=== PATIENT | male | born 1960 | race Caucasian/White ===

== ENCOUNTER → 2021-04-22 | Outpatient (CLI) | payer BC ==
--- NOTE | 2021-04-22 17:58 | CONS ---
CONSULTATION DATE OF SERVICE: 04/22/2021 This 61-year-old gentleman has been evaluated in the sleep center for possible obstructive sleep apnea-hypopnea syndrome. HISTORY OF PRESENT ILLNESS/SLEEP-WAKE EVALUATION: Patient's usual sleep schedule on working days is from 9 p.m. to 5 a.m. and on weekends from 9:30 p.m. to 5 a.m. No problems with falling asleep, although patient has a TV set in the bedroom. According to his , he snores and has witnessed episodes of stopped breathing during sleep. The patient wakes up from sleep with choking and nocturia, has symptoms of restless legs. During the day he usually does not take naps. R[place]el Sleepiness Scale is 3. PAST MEDICAL HISTORY: Positive for hypertension and hyperlipidemia. PAST SURGICAL HISTORY: Right colectomy for benign tumor. MEDICATIONS: 1. Lisinopril 10 mg once a day. 2. Loratadine 60 mg once a day. 3. Atorvastatin 40 mg once a day. SOCIAL HISTORY: Negative for smoking. Alcohol consumption: Occasional. FAMILY HISTORY: Heart problems. REVIEW OF SYSTEMS: No fevers. No double vision. No recent chest pain. No shortness of breath. No abdominal pain. No bleeding episodes. No blood in the urine. No seizure episodes. Snoring, episodes of stopped breathing during sleep. PHYSICAL EXAMINATION: GENERAL: Pleasant gentleman without distress. VITAL SIGNS: BP 151/96, HR 76, RR 12, height 5 feet 10-1/2 inches, weight 205.4 pounds, body mass index 28.9, temperature 97.2, oxygen saturation at room air 96%. HEENT: PERRLA, EOMI, evaluation of oropharynx showed tongue protrudes midline. Extremely low position of soft palate; Mallampati IV. NECK: Supple, no JVD. Thyroid is not palpable. Neck measures 16-1/2 inches in circumference. LUNGS: Clear to percussion and to auscultation. Good air exchange. No wheezing or rhonchi. HEART: S1, S2 regular. No murmurs, gallops, or rubs. ABDOMEN: Soft and nontender. Bowel sounds are present. No organomegaly appreciated. EXTREMITIES: No clubbing or cyanosis. ECHOCARDIOGRAPH TECHNICIAN: Awake, alert, and oriented X3. Cranial nerves 2 to 7 intact. There is no fasciculation or atrophy. noted. No focal deficits observed. IMPRESSION: 1. Snoring, witnessed episodes of stopped breathing during sleep, awakenings from sleep with nocturia, extremely low position of soft palate, Mallampati IV; obstructive sleep apnea-hypopnea syndrome. 2. Obesity. 3. Hyperlipidemia. 4. Status post right colectomy for benign tumor. PLAN: 1. Home sleep apnea test for evaluation of patient's breathing during sleep. 2. CPAP/BiPAP titration if sleep study confirms obstructive sleep apnea-hypopnea syndrome. 3. Preferable position during sleep on the side. 4. No driving if patient feels any sleepiness. 5. I will see patient for follow up visit to explain results of testing and following plan. Thank you very much for referring this patient for consultation. Sincerely, Gorge Blount MD, PhD, FAASM Diplomat of [employer] Sleep Medicine Board of [employer] Work[employer] [facility] [place] MMODL / DIEGON: [id number] /
== END ==
LOC: SLEEP 15:34
PROVIDERS: ATTEND Internal Medicine
DX: G47.33 Obstructive sleep apnea (adult) (pediatric) (principal); E66.9 Obesity, unspecified; E78.5 Hyperlipidemia, unspecified; I10 Essential (primary) hypertension; Z68.28 Body mass index [BMI] 28.0-28.9, adult; Z79.899 Other long term (current) drug therapy
CPT/HCPCS: 99202

== ENCOUNTER 2022-04-15 07:24 | Emergency (ER) | payer OTHER, BC ==
[2022-04-15 08:01] VITALS: RESP 18; TEMP 97.6
[2022-04-15] MEDS ORDERED: MORPHINE SULFATE 4 MG/ML SYRINGE IVP STA (08:14)
[2022-04-15] MEDS ORDERED: methocarbamoL 500 MG TAB PO STA (08:14)
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
[2022-04-15 08:56] LABS: Basophils # (A) 0.1 k/uL (0-0.2); Basophils % (A) 1 %; Eosinophils # (A) 0.1 k/uL (0-0.7); Eosinophils % (A) 1 %; HCT 50.6 % (39.0-53.0); HGB 16.6 gm/dL (13.0-17.5); Lymphocytes # (A) 1.5 k/uL (1.0-4.8); Lymphocytes % (A) 18 %; MCH 30.7 pg (25.0-35.0); MCHC 32.8 g/dL (31.0-37.0); MCV 93.4 fL (80.0-100.0); Mean Platelet Volume 7.6; Monocytes # (A) 0.6 k/uL (0-1.0); Monocytes % (A) 7 %; Neutrophils # (A) 6.2 k/uL (1.3-7.7); Neutrophils % (A) 73 %; Platelet Count 289 k/uL (150-450); RBC 5.41 m/uL (4.30-5.90); WBC 8.5 k/uL (3.8-10.6)
[2022-04-15 09:07] LABS: Amphetamine Screen,Urine Not Detected (NotDetected); Barbiturate Screen,Urine Not Detected (NotDetected); Benzodiazepines Screen,Urine Not Detected (NotDetected); Cocaine Screen,Urine Not Detected (NotDetected); Methadone Screen, Urine Not Detected (NotDetected); Opiate Screen,Urine Not Detected (NotDetected); Oxycodone Screen, Urine Not Detected (NotDetected); Phencyclidine Screen,Urine Not Detected (NotDetected); Tricyclic Antidepressant,Urine Not Detected (NotDetected); Urn Cannabinoid Scrn Not Detected (NotDetected)
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
[2022-04-15 09:16] LABS: INR 0.9 (<1.2); Partial Thromboplastin Time 23.4 sec (22.0-30.0); Prothrombin Time 9.9 sec (9.0-12.0)
[2022-04-15 09:22] LABS: ALT 42 U/L (4-49); AST 34 U/L (17-59); African American GFR (CKD) >90 (>60 ml/min/1.73 sqM); Albumin 4.6 g/dL (3.5-5.0); Alcohol <10 mg/dL; Alkaline Phosphatase 85 U/L (38-126); Anion Gap 11 mmol/L; Blood Urea Nitrogen 18 mg/dL (9-20); Calcium 9.5 mg/dL (8.4-10.2); Carbon Dioxide 25 mmol/L (22-30); Chloride 103 mmol/L (98-107); Glucose 91 mg/dL (74-99); Non-African American GFR(CKD) 85 (>60 ml/min/1.73 sqM); Potassium 5.1 mmol/L (3.5-5.1); Sodium 139 mmol/L (137-145); Total Bilirubin 0.5 mg/dL (0.2-1.3); Total Protein 7.3 g/dL (6.3-8.2)
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
[2022-04-15] MEDS ORDERED: TETRACAINE 0.5% OPHTH (PF) DROPS 4 ML BTL LEFT EYE STA (09:57)
[2022-04-15] MEDS ORDERED: FLUORESCEIN STRIPS 1 MG STRIP LEFT EYE ONE (09:57)
[2022-04-15 11:00] VITALS: BP 149/93; PULSE 73
== END 2022-04-15 11:00 | disposition home or self-care (01) ==
LOC: EC 07:24
DX: S05.02XA Injury of conjunctiva and corneal abrasion without foreign body, left eye, initial encounter (principal); S39.011A Strain of muscle, fascia and tendon of abdomen, initial encounter; I10 Essential (primary) hypertension; E78.5 Hyperlipidemia, unspecified; Z79.899 Other long term (current) drug therapy; V49.40XA Driver injured in collision with unspecified motor vehicles in traffic accident, initial encounter
CPT/HCPCS: 36415; 86900; 86901; 80053; 85025; 85610; 85730; 86850; 80306; 80320; 72170; 73552; 73590; 73562; 71045; 72125; 70450; 99284; 96374; J2270

== ENCOUNTER 2022-04-17 11:00 | Emergency (ER) | payer OTHER, BC ==
--- NOTE | 2022-04-17 12:00 | CT ---
EXAMINATION TYPE: CT brain wo con DATE OF EXAM: 04/17/2022 COMPARISON: 04/15/2022 HISTORY: 62-year-old male Migraine TECHNIQUE: Examination was done in axial plane without intravenous contrast. Coronal and sagittal r econstructions performed. CT DLP: 1231.8 mGycm Automated exposure control for dose reduction was used. FINDINGS: There is no evidence of acute intracranial hemorrhage, acute ischemic changes, mass, mass-effect, or extra-axial fluid collection. There is no effacement of cerebral sulci or basal subarachnoid cister ns. There is no hydrocephalus. There is no midline shift. Bowden-white matter distinction is preserv ed. Left nasal septal deviation. Paranasal sinuses and mastoid air cells are well-pneumatized. Bones are intact of the septum deviation. Paranasal sinuses and mastoid air cells are pneumatized. Orbital glob es are intact. IMPRESSION: No acute intracranial abnormality seen.
[2022-04-17] MEDS ORDERED: traMADol 50 MG STARTER PACK 3 TAB BTL PO STA ×2 (12:54→20:43)
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
[2022-04-17] MEDS ORDERED: lisinopriL 10 MG TAB PO STA ×2 (13:35→14:50)
[2022-04-17] MEDS ORDERED: hydrALAZINE HCL 20 MG/ML 1 ML VIAL IVP STA ×2 (17:01→19:09)
[2022-04-17 17:40] LABS: Basophils # (A) 0.1 k/uL (0-0.2); Basophils % (A) 1 %; Eosinophils # (A) 0.1 k/uL (0-0.7); Eosinophils % (A) 1 %; HCT 49.3 % (39.0-53.0); HGB 16.2 gm/dL (13.0-17.5); Lymphocytes # (A) 2.6 k/uL (1.0-4.8); Lymphocytes % (A) 28 %; MCH 30.3 pg (25.0-35.0); MCHC 32.9 g/dL (31.0-37.0); MCV 92.1 fL (80.0-100.0); Mean Platelet Volume 7.7; Monocytes # (A) 0.6 k/uL (0-1.0); Monocytes % (A) 7 %; Neutrophils # (A) 5.7 k/uL (1.3-7.7); Neutrophils % (A) 62 %; Platelet Count 263 k/uL (150-450); RBC 5.35 m/uL (4.30-5.90); RDW 13.7 % (11.5-15.5); WBC 9.2 k/uL (3.8-10.6)
[2022-04-17 17:55] LABS: INR 0.9 (<1.2); Partial Thromboplastin Time 24.4 sec (22.0-30.0); Prothrombin Time 10.1 sec (9.0-12.0)
[2022-04-17 18:10] LABS: African American GFR (CKD) >90 (>60 ml/min/1.73 sqM); Anion Gap 12 mmol/L; Blood Urea Nitrogen 19 mg/dL (9-20); Calcium 9.4 mg/dL (8.4-10.2); Carbon Dioxide 25 mmol/L (22-30); Chloride 99 mmol/L (98-107); Glucose 87 mg/dL (74-99); Non-African American GFR(CKD) 78 (>60 ml/min/1.73 sqM); Potassium 5.1 mmol/L (3.5-5.1); Sodium 136 mmol/L (137-145)
--- NOTE | 2022-04-17 19:36 | CT ---
EXAMINATION TYPE: CT angio head neck DATE OF EXAM: 04/17/2022 COMPARISON: None HISTORY: Headache, recent head trauma. Hx HTN CT DLP: 555.3 mGycm Automated exposure control for dose reduction was used. CONTRAST: Performed with IV Contrast, patient injected with 65 mL of Isovue 370. Images obtained from the aortic arch to the vertex of the brain with the IV contrast. There are Three -D postprocessed images. There is normal branching pattern of the great vessels on the aortic arch. There is arterial flow in the subclavian arteries bilaterally. There is arterial flow in the common internal and external carot id arteries bilaterally. There is wide patency of the carotid artery bifurcations. There is arterial flow in both vertebral arteries. No evidence of carotid or vertebral artery aneurysm or dissection. T here is arterial flow in the vertebrobasilar artery system. Right vertebral artery is larger than the left. There is arterial flow in the anterior middle and posterior cerebral arteries bilaterally. No mass ef fect. No evidence of intracranial aneurysm or neovascularity. No evidence of intracranial hemodynamic arterial stenosis. There is normal enhancement of the venous sinuses. IMPRESSION: Negative CT angiogram of the neck. Negative CT angiogram of the brain.
[2022-04-17 20:20] VITALS: RESP 20
[2022-04-17 20:59] VITALS: BP 176/98; PULSE 81; TEMP 98.1
== END 2022-04-17 20:59 | disposition home or self-care (01) ==
LOC: EC 11:00
DX: R51.9 Headache, unspecified (principal); I10 Essential (primary) hypertension; V49.60XA Unspecified car occupant injured in collision with unspecified motor vehicles in traffic accident, initial encounter
CPT/HCPCS: 36415; 80048; 85025; 85610; 85730; 70496; 70450; 70498; 99284; 96374; 96376; J0360; Q9967

== ENCOUNTER → 2022-10-13 | Outpatient (CLI) | payer BC ==
[2022-10-13 15:27] LABS: HCT 48.2 % (39.6-50.0); HGB 15.8 g/dL (13.0-17.0); MCH 30.7 pg (27.0-32.0); MCHC 32.8 g/dL (32.0-37.0); MCV 93.6 fL (80.0-97.0); Mean Platelet Volume 10.5 fL (9.5-12.2); NRBC Per 100 WBC 0 /100 WBCS (0.0-0.0); Platelet Count 307 X 10*3/uL (140-440); RBC 5.15 X 10*6/uL (4.40-5.60); RDW 13.1 % (11.5-14.5); WBC 12.33 X 10*3/uL (4.50-10.00)
[2022-10-13 16:31] LABS: African American GFR (CKD) 74.1 (60.0-200.0); Anion Gap 12.7 mmol/L (10.00-18.00); Blood Urea Nitrogen 29.1 mg/dL (9.0-27.0); Carbon Dioxide 27.3 mmol/L (20.0-27.5); Potassium 4.7 mmol/L (3.5-5.5)
== END | disposition home or self-care (01) ==
LOC: LABPAT 08:48
PROVIDERS: ATTEND Internal Medicine Interventional Cardiology
DX: Z01.812 Encounter for preprocedural laboratory examination (principal); R94.39 Abnormal result of other cardiovascular function study
CPT/HCPCS: 80051; 82565; 84520; 85027

== ENCOUNTER 2022-10-18 08:50 | Day surgery (SDC) | payer BC ==
[~2022-10-18 08:50] MED LIST: ALPRAZolam 0.25 MG TAB PO PRN; ALPRAZolam 0.5 MG TAB PO PRN; ASPIRIN 325 MG TAB PO ONE; ATORVASTATIN 80 MG TAB PO ONE; HEPARIN SODIUM,PORCINE 10,000 UNIT in SODIUM CHLORIDE 0.9% 1,000 ML IRRIGATION PRN; HEPARIN SODIUM,PORCINE 2,500 UNIT in SODIUM CHLORIDE 0.9% 250 ML IRRIGATION PRN; NITROGLYCERIN SL TABS 0.4 MG TAB SUBLINGUAL PRN; SODIUM CHLORIDE 0.9% 1,000 ML in EMPTY BAG 1 BAG IV SCH
[2022-10-18] MEDS ORDERED: SODIUM CHLORIDE 0.9% 1,000 ML IV ONE (09:02)
[2022-10-18] MEDS ORDERED: VERAPAMIL 2.5 MG/ML 2 ML AMP ONE (09:12)
[2022-10-18 09:22] VITALS: RESP 16; TEMP 97.6
[2022-10-18] MEDS ORDERED: fentaNYL (PF) 50 MCG/ML 2 ML AMP ONE (10:36)
[2022-10-18] MEDS ORDERED: HEPARIN SODIUM 1,000 UN/ML (10ML VL) ONE (10:36)
[2022-10-18] MEDS ORDERED: LIDOCAINE 1% INJ 10MG/ML (5 ML VIAL-PF) SQ ONE (10:58)
[2022-10-18] MEDS ORDERED: MIDAZOLAM 2 MG/2 ML VIAL IV ONE (11:01)
[2022-10-18] MEDS ORDERED: fentaNYL (PF) 50 MCG/ML 2 ML AMP IV ONE (11:02)
[2022-10-18] MEDS ORDERED: VERAPAMIL SYRINGE (5 MG/10 ML) INTRAARTER ONE (11:03)
[2022-10-18] MEDS ORDERED: HEPARIN SODIUM 1,000 UN/ML (10ML VL) IV ONE (11:05)
[2022-10-18] MEDS ORDERED: CLOPIDOGREL 75 MG TAB ONE (11:08)
[2022-10-18] MEDS ORDERED: CLOPIDOGREL 75 MG TAB PO ONE (11:11)
[2022-10-18] MEDS ORDERED: IOPAMIDOL-370 125ML BTL INJ ONE (11:36)
[2022-10-18] MEDS ORDERED: ZOLPIDEM 5 MG TAB PO PRN (11:45)
[2022-10-18] MEDS ORDERED: ATROPINE SULFATE 0.1 MG/ML 10ML SYRINGE IV PRN (11:45)
[2022-10-18] MEDS ORDERED: NITROGLYCERIN SL TABS 0.4 MG TAB SUBLINGUAL PRN (11:45)
[2022-10-18] MEDS ORDERED: RX INFO: IV CONTRAST WAS GIVEN 1 EACH MISC MISCELLANE PRN (11:45)
[2022-10-18] MEDS ORDERED: SODIUM CHLORIDE 0.9% 1,000 ML in EMPTY BAG 1 BAG IV SCH (11:45)
[2022-10-18] MEDS ORDERED: MAG HYDROX/AL HYDROX/SIMETH 30 ML CUP PO PRN (11:45)
--- NOTE | 2022-10-18 11:55 | P.CARDCATH ---
Date of Procedure: 10/18/22 Description of Procedure: Cardiac Catheterization: The patient is a 62-year-old male with a history of hypertension, hyperlipidemia, strong family history of premature CAD who recently had an abnormal stress echocardiogram. Recommendations were made regarding cardiac catheterization, the risks and the complications were discussed with the patient who is in full understanding and agreement. 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 Using Xylocaine Anesthesia and Seldinger technique, a 6-[place] sheath was introduced in the right radial artery . Subsequently, selective coronary angiography was performed using a 5-[place] 3.5 bend Marjan catheter. Multiple views of the coronary artery including hemiaxial views were obtained. The 5-[place] Pigatail catheter was used to cross the aortic valve and LVEDP was calculated. After removing the catheters a 6-[place] 0.75 AL guiding catheter was introduced and after cannulating the right coronary ostium a 0.014 BMW J-wire was pos itioned distally subsequently a 4.5 x 15 mm Xience Radha point was deployed at 14 chelle, after removing the balloon an IVUS Hitchcock Eye was introduced and images were obtained following that a 5.0 x 12 mm NC Treck was advanced and one inflation at 12 chelle was done. Repeat IVUS images were obtained. Following that the wire was withdrawn back into getting catheter images were obtained and revealed stable successful stenting. Following that, catheter and sheath were removed. Hemostasis was obtained with deployment of TR band . There was no immediate complication. Patient was returned to room in stable condition. Of note, the patient received a total of 7000 units of intravenous heparin as well as intra- arterial verapamil. He received an oral loading dose of clopidogrel, his ACT was monitored. He had no chest discomfort but he had EKG changes with the inflations. Findings: Fluoroscopy: Calcifications of the LAD was noted Left main: This is a large-size vessel, bifurcating into LAD and left circumflex, the left main has no high-grade stenosis. LAD: This is a large-size vessel, reaching to the apex, tapers down in the distal third, giving rise to moderately sized diagonal branch proximally, the LAD has no evidence of high-grade stenosis with mild intimal disease of 10% proximally Left circumflex: This is a nondominant vessel giving rise to a large obtuse marginal branch that has no evidence of high-grade stenosis RCA: This is a large dominant vessel, bifurcating distally to PDA and PLV, the PLV reaches to the apical lateral wall. The RCA prior to the bifurcation has a 70% eccentric lesion, the rest of the vessel has no high-grade stenosis Left Ventriculogram: Not performed Hemodynamics: There was no gradient across the aortic valve, LVEDP was 7-10 mmHg Conclusion: 1. Calcified LAD 2. Significant stenosis in the distal RCA 3. Mild disease in the LAD 4. Successful stenting of the distal RCA with intravascular ultrasound imaging with reduction of stenosis from 70% to less than 5% Recommendations: The patient will continue on aspirin and Plavix without any interruption for 6 months in addition to aggressive coronary risks modification. The findings and the recommendations were discussed with the patient and the family and they were in full understanding and agreement. Duration of sedation is 38 minutes.
[2022-10-18 15:56] VITALS: BP 130/72; PULSE 85
[2022-10-19] MEDS ORDERED: LISINOPRIL-HCTZ 20-12.5 MG 1 EACH TAB PO SCH (09:00)
[2022-10-19] MEDS ORDERED: ATORVASTATIN 40 MG TAB PO SCH (09:00)
[2022-10-19] MEDS ORDERED: ASPIRIN 81 MG PO SCH (09:00)
[2022-10-19] MEDS ORDERED: CLOPIDOGREL 75 MG TAB PO SCH (09:00)
== END 2022-10-18 15:51 | disposition home or self-care (01) ==
LOC: CATHCVL 08:50
PROVIDERS: ATTEND Internal Medicine Interventional Cardiology
DX: I25.10 Atherosclerotic heart disease of native coronary artery without angina pectoris (principal); I10 Essential (primary) hypertension; E78.5 Hyperlipidemia, unspecified
CPT/HCPCS: 92978; 93458; C9600; C1769 ×3; C1887; C1894; C1753; C1874; C1725; J2250; J2001; J3010; J1644; Q9967

== ENCOUNTER → 2022-12-29 | Outpatient (CLI) | payer BC ==
[2022-12-29 14:55] LABS: ALT 52 U/L (10-49); AST 38 U/L (14-35); Albumin 4.4 g/dL (3.8-4.9); Albumin/Globulin Ratio 1.96 (1.60-3.17); Alkaline Phosphatase 73 U/L (41-126); BUN/Creat Ratio 19.04 Ratio (12.00-20.00); Blood Urea Nitrogen 18.3 mg/dL (9.0-27.0); Calcium 9.7 mg/dL (8.7-10.3); Chloride 101 mmol/L (96-109); Chol/HDL Ratio 4.39 Ratio; Globulin 2.2 g/dL (1.6-3.3); Glucose 114 mg/dL (70-110); LDL Cholesterol,Calculated 114.8 mg/dL (0.0-131.0); Non-African American GFR(CKD) 83.7 (60.0-200.0); Potassium 5.1 mmol/L (3.5-5.5); Sodium 140 mmol/L (135-145); Total Protein 6.6 g/dL (6.2-8.2)
== END | disposition home or self-care (01) ==
LOC: LABWHC1 07:06
PROVIDERS: ATTEND Internal Medicine Interventional Cardiology
DX: E78.2 Mixed hyperlipidemia (principal)
CPT/HCPCS: 36415; 80053; 80061

== ENCOUNTER → 2023-05-25 | Outpatient (CLI) | payer BC ==
[2023-05-25 11:02] LABS: ALT 43 U/L (10-49); AST 28 U/L (14-35); Chol/HDL Ratio 3.59 Ratio; LDL Cholesterol,Calculated 123.1 mg/dL (0.0-131.0)
== END | disposition home or self-care (01) ==
LOC: LABWHC1 07:03
PROVIDERS: ATTEND Internal Medicine Interventional Cardiology
DX: E78.2 Mixed hyperlipidemia (principal)
CPT/HCPCS: 36415; 80061; 84450; 84460

== ENCOUNTER 2023-08-16 07:00 | Day surgery (SDC) | payer BC ==
[~2023-08-16 07:00] MED LIST changes: -ALPRAZolam 0.25 MG TAB PO PRN; -ALPRAZolam 0.5 MG TAB PO PRN; -ASPIRIN 325 MG TAB PO ONE; -ATORVASTATIN 80 MG TAB PO ONE; -HEPARIN SODIUM,PORCINE 10,000 UNIT in SODIUM CHLORIDE 0.9% 1,000 ML IRRIGATION PRN; -HEPARIN SODIUM,PORCINE 2,500 UNIT in SODIUM CHLORIDE 0.9% 250 ML IRRIGATION PRN; +LACTATED RINGERS 1,000 ML IV SCH; -NITROGLYCERIN SL TABS 0.4 MG TAB SUBLINGUAL PRN; -SODIUM CHLORIDE 0.9% 1,000 ML in EMPTY BAG 1 BAG IV SCH
[2023-08-16] MEDS ORDERED: hydrALAZINE HCL 20 MG/ML 1 ML VIAL IVP ONE (07:40)
[2023-08-16 07:51] VITALS: RESP 16; TEMP 97.4
[2023-08-16] MEDS ORDERED: PROPOFOL 10 MG/ML 20 ML VIAL IV ONE (08:19)
[2023-08-16] MEDS ORDERED: LIDOCAINE 1% INJ 10MG/ML (20 ML MDV) ONE (08:19)
--- NOTE | 2023-08-16 08:24 | P.GSHP ---
History of Present Illness H&P Date: 08/16/23 Chief Complaint: Colon cancer screening 63-year-old male here for colonoscopy. Last colonoscopy about 8-10 years ago. Family history of colon cancer in grandfather. Patient with history of previous right colectomy for colon polyp. Past Medical History Past Medical History: Coronary Artery Disease (CAD), Hyperlipidemia, Hypertension Additional Past Medical History / Comment(s): positive stress, strong family hx of heart disease History of Any Multi-Drug Resistant Organisms: None Reported Past Surgical History: Bowel Resection, Heart Catheterization With Stent Additional Past Surgical History / Comment(s): colectomy 2009 Past Anesthesia/Blood Transfusion Reactions: No Reported Reaction Date of Last Stent Placement:: September 2022 Smoking Status: Never smoker - Past Family History Mother Family Medical History: Cancer Father Family Medical History: Coronary Artery Disease (CAD) Medications and Allergies Home Medications Medication Instructions Recorded Confirmed Type Aspirin [Adult Low Dose Aspirin EC] 81 mg PO DAILY 10/13/22 08/16/23 History Atorvastatin Calcium 40 mg PO DAILY 10/13/22 08/16/23 History Cholecalciferol (Vitamin D3) 2,000 unit PO DAILY 10/13/22 08/16/23 History [Vitamin D3 (50 Mcg = 2000 Iu) Chew Tab] Lisinopril-Hctz 20-12.5 mg 1 tab PO DAILY 10/13/22 08/16/23 History [Zestoretic 20-12.5] Loratadine 10 mg PO DAILY 10/13/22 08/16/23 History Allergies Allergy/AdvReac Type Severity Reaction Status Date / Time No Known Allergies Allergy Verified 08/16/23 07:28 Surgical - Exam Vital Signs Temp Pulse Resp BP Pulse Ox 97.4 F L 79 16 164/100 97 08/16/23 07:30 08/16/23 07:30 08/16/23 07:30 08/16/23 07:30 08/16/23 07:30 Physical exam: General: Well-developed, well-nourished HEENT: Normocephalic, sclerae nonicteric Abdomen: Nontender, nondistended Extremities: No edema Neuro: Alert and oriented Assessment and Plan (1) Colon cancer screening Narrative/Plan: Will proceed with colonoscopy at this time Current Visit: Yes Status: Acute Code(s): Z12.11 - ENCOUNTER FOR SCREENING FOR MALIGNANT NEOPLASM OF COLON SNOMED Code(s): 513474261
--- NOTE | 2023-08-16 08:46 | P.PCN ---
Date of Procedure: 08/16/23 Procedure(s) Performed: PREOPERATIVE DIAGNOSIS: Cancer screening with history of polyp POSTOPERATIVE DIAGNOSIS: Rectal polyp, diverticulosis PROCEDURE: Colonoscopy with snare polypectomy ANESTHESIA: MAC SURGEON: Rogerio Quigley M.D. SPECIMENS: Rectal polyp ENDOSCOPIC PROCEDURE: The patient was placed on the endoscopy table in the left decubitus position. The Olympus colonoscope was inserted into the anus and passed under direct visualization to the ileocolonic anastomosis. The anastomosis was widely patent. From that point the scope was slowly withdrawn inspecting all surfaces carefully. There were no neoplastic inflammatory or polypoid lesions throughout the ascending, transverse, descending, and sigmoid colon. In the rectum a small polyp was seen and removed using the cold snare technique. The remainder of the rectum appeared normal. The patient had moderate left-sided diverticulosis. Digital rectal examination was normal. The patient was taken to the recovery room in stable condition per anesthesia guidelines. RECOMMENDATIONS: Await biopsy results. Repeat colonoscopy 5 years.
[2023-08-16 09:30] VITALS: BP 118/74; PULSE 78
== END 2023-08-16 09:39 | disposition home or self-care (01) ==
LOC: ORWHC2ENDO 07:00
PROVIDERS: ATTEND Surgery
DX: Z12.11 Encounter for screening for malignant neoplasm of colon (principal); K62.1 Rectal polyp; K57.30 Diverticulosis of large intestine without perforation or abscess without bleeding; I25.10 Atherosclerotic heart disease of native coronary artery without angina pectoris; E78.5 Hyperlipidemia, unspecified; I10 Essential (primary) hypertension; Z82.49 Family history of ischemic heart disease and other diseases of the circulatory system; Z95.5 Presence of coronary angioplasty implant and graft; Z98.890 Other specified postprocedural states; Z79.82 Long term (current) use of aspirin; Z79.899 Other long term (current) drug therapy; Z86.010 Personal history of colon polyps; Z80.0 Family history of malignant neoplasm of digestive organs
CPT/HCPCS: 88305; 45385; J0360; J2001; J2704

== ENCOUNTER → 2023-12-07 | Outpatient (CLI) | payer OTHER ==
[2023-12-07 15:25] LABS: ALT 53 U/L (10-49); AST 37 U/L (14-35); Chol/HDL Ratio 3.52 Ratio; LDL Cholesterol,Calculated 102.8 mg/dL (0.0-131.0)
== END | disposition home or self-care (01) ==
LOC: LABWHC1 07:15
PROVIDERS: ATTEND Internal Medicine Interventional Cardiology
DX: E78.2 Mixed hyperlipidemia (principal)
CPT/HCPCS: 36415; 80061; 84450; 84460

== ENCOUNTER → 2024-04-06 | Outpatient (CLI) | payer MEDICARE ==
[2024-04-06 16:38] LABS: Basophils # (A) 0.07 X 10*3/uL (0.00-0.10); Basophils % (A) 1.1 %; Eosinophils # (A) 0.14 X 10*3/uL (0.04-0.35); Eosinophils % (A) 2.2 %; HCT 46.3 % (39.6-50.0); HGB 15.3 g/dL (13.0-17.0); Lymphocytes % (A) 37.4 %; MCH 30.6 pg (27.0-32.0); MCV 92.6 FL (80.0-97.0); Mean Platelet Volume 10.2 FL (9.5-12.2); Monocytes # (A) 0.76 X 10*3/uL (0.20-1.00); Monocytes % (A) 11.8 %; NRBC Per 100 WBC 0 X 10*3/uL (0.00-0.01); Neutrophils # (A) 3.01 X 10*3/uL (1.80-7.70); Neutrophils % (A) 46.9 %; Platelet Count 261 X 10*3/uL (140-440); RDW 13.8 % (11.5-14.5); WBC 6.42 X 10*3/uL (4.50-10.00)
[2024-04-06 17:11] LABS: ALT 71 U/L (10-49); AST 37 U/L (14-35); Albumin 4.5 g/dL (3.8-4.9); Albumin/Globulin Ratio 2.14 Ratio (1.60-3.17); Alkaline Phosphatase 78 U/L (41-126); Calcium 9.8 mg/dL (8.7-10.3); Carbon Dioxide 27.4 mmol/L (21.6-31.8); Chloride 102 mmol/L (96-109); Chol/HDL Ratio 3.58 Ratio; Globulin 2.1 g/dL (1.6-3.3); Glucose 111 mg/dL (70-110); LDL Cholesterol,Calculated 101.6 mg/dL (0.0-131.0); Potassium 4.6 mmol/L (3.5-5.5); Sodium 140 mmol/L (135-145); Total Bilirubin 0.8 mg/dL (0.3-1.2); Total Protein 6.6 g/dL (6.2-8.2)
== END | disposition home or self-care (01) ==
LOC: LABWHC1 07:54
PROVIDERS: ATTEND Family Medicine
DX: E78.2 Mixed hyperlipidemia (principal)
CPT/HCPCS: 36415; 80053; 80061; 83036; 85025

== ENCOUNTER → 2024-08-03 | Outpatient (CLI) | payer MEDICARE ==
[2024-08-03 15:52] LABS: ALT 54 U/L (10-49); AST 32 U/L (14-35); Chol/HDL Ratio 2.82 Ratio; LDL Cholesterol,Calculated 83.4 mg/dL (0.0-131.0)
== END | disposition home or self-care (01) ==
LOC: LABWHC1 07:30
PROVIDERS: ATTEND Internal Medicine Interventional Cardiology
DX: E78.2 Mixed hyperlipidemia (principal)
CPT/HCPCS: 36415; 80061; 84450; 84460